=== PATIENT | female | born 1955 | race Caucasian/White ===

== ENCOUNTER 2024-06-22 15:30 | Emergency (ER) | payer OTHER, SELFPAY ==
[2024-06-22] VITALS (17 sets, daily range): BP systolic 158–188; BP diastolic 74–113; PULSE 91–111; TEMP 36.8; O2SAT 96–100; BMI 23.0
--- NOTE | 2024-06-22 15:33 | CT_ITS ---
The [address] [address] Patient Name: YADY PEDERSEN MRN: [id number] date: 1955 Sex: F Assigned Patient Location: ER Current Patient Location: .[facility] Accession/Order Number: [id number] Exam Date: 06/22/2024 15:35 Report Date: 06/22/2024 15:49 At the request of: KUN ARREGUIN Procedure: CT stroke head/brain wo con EXAM: CT stroke head/brain wo con HISTORY: ams slurred speech COMPARISON: None available at the time of dictation. TECHNIQUE: Axial unenhanced CT images were obtained through the brain. Individualized dose optimization technique was used for the performed procedure by employing the following: Automated exposure control, adjustment of the mA and/or kV according to patient's size, and/or the use of the iterative construction technique. Coronal and sagittal reformats were performed. FINDINGS: No acute intracranial abnormality. No acute infarct, hemorrhage or mass. No midline shift. Alexandra-white matter differentiation is preserved. Ventricles and sulci are normal in size. Periventricular white matter hypodensity, likely chronic white matter ischemic disease. No acute osseous abnormality. Paranasal sinuses are clear. Mastoid air cells are open. Orbits are normal. CT/CT stroke head/brain wo con IMPRESSION: 1. No acute intracranial abnormality. No acute intracranial infarct visualized by this modality. (MRI is more sensitive). No acute intracranial hemorrhage Electronically authenticated by: KAMLESH MCCLOUD Date: 06/22/2024 15:49
--- NOTE | 2024-06-22 15:33 | ECG_ITS ---
The [facility] Test Date: 2024-06-22 Pat Name: YADY PEDERSEN Department: Room: - Gender: Female [employer]: : 1955 Requested By: PHI ROWELL Order Number: [id number] Reading MD: SHELLIE ALBRIGHT Measurements Intervals [place] Rate: 96 P: 86 DE: 142 QRS: 75 QRSD: 82 T: 64 QT: 366 QTc: 419 Interpretive Statements 1100 Sinus rhythm 3613 Cannot rule out inferior myocardial infarction, probably old 9150 abnormal ECG No previous ECG available for comparison Electronically Signed On 06-22-2024 21:29:42 EST by SHELLIE ALBRIGHT
[2024-06-22 15:46] LABS: Glucometer 106 mg/dL (74-106)
[2024-06-22 15:49] LABS: Basophils Absolute Auto 0.1 10^3/uL (0.0-0.1); Basophils Percent Auto 0.3 % (0.2-2.0); Eosinophils Percent Auto 0.1 % (0.9-7.0); Hematocrit 45.8 % (36.0-48.0); Immature Granulocytes Abs Auto 0.06 10^3/uL (0.00-0.03); Immature Granulocytes Pct Auto 0.3 % (0.0-0.5); Lymphocytes Absolute Auto 1.1 10^3/uL (1.2-3.8); Lymphocytes Percent Auto 6.2 % (20.5-60.0); Mean Corpuscular HGB Conc 34.9 g/dL (29.9-35.2); Mean Corpuscular Volume 88.8 fL (81.0-99.0); Mean Platelet Volume 9.6 fL (9.5-13.5); Monocytes Absolute Auto 0.9 10^3/uL (0.3-0.8); Monocytes Percent Auto 4.7 % (1.7-12.0); Neutrophils Absolute Auto 16.3 10^3/uL (1.4-6.5); Neutrophils Percent Auto 88.4 % (43.0-75.0); Platelet Count 366 10^3/uL (150-450); Red Blood Count 5.16 10^6/uL (4.20-5.40); Red Cell Distribution Width 11.9 % (11.0-15.0); White Blood Count 18.4 10^3/uL (4.0-11.0)
[2024-06-22 16:03] LABS: INR 1.03; Prothrombin Time 10.9 sec (9.0-11.6)
[2024-06-22 16:07] LABS: Alanine Aminotransferase 19 U/L (14-59); Albumin Globulin Ratio 1.2; Albumin Level 4.2 g/dL (3.4-5.0); Alkaline Phosphatase 107 U/L (46-116); Anion Gap 18.4; Aspartate Amino Transferase 19 U/L (15-37); BUN Creatinine Ratio 11.6; Bilirubin Total 0.4 mg/dL (0.2-1.0); Calcium 9.6 mg/dL (8.5-10.1); Chloride 104 mmol/L (98-107); Estimated GFR (African America >60 (>=60 mL/min/1.73m^2); Estimated GFR (Non-African Ame >60 (>=60 mL/min/1.73m^2); Globulin 3.4 g/dL; Glucose 115 mg/dL (74-106); Potassium 4.4 mmol/L (3.5-5.1); Sodium 143 mmol/L (136-145); Total Protein 7.6 g/dL (6.4-8.2)
--- NOTE | 2024-06-22 16:08 | CT_ITS ---
The [address] [address] Patient Name: YADY PEDERSEN MRN: [id number] date: 1955 Sex: F Assigned Patient Location: ED.MAIN Current Patient Location: Accession/Order Number: [id number] Exam Date: 06/22/2024 16:35 Report Date: 06/22/2024 17:15 At the request of: KUN ARREGUIN Procedure: CT angio neck CT angio head, CT angio neck, 06/22/2024 4:35 PM EST INDICATION: stroke COMPARISON: Prior CT of the head of the same date TECHNIQUE: Pre and postcontrast enhanced CT angiography of the head and neck were acquired with contrast .3 D MIP images were reconstructed in sagittal and coronal format at the scanner and were evaluated at the time of dictation. Dose reduction techniques were achieved by using automated exposure control and/or adjustment of mA and/or kV according to patient size and/or use of iterative reconstruction technique. FINDINGS: The great vessels enhance normally. No filling defects are identified within the carotid arteries. There is mild stenosis at the origin of the internal carotid arteries. No abnormality of [place] is noted. The BAIRON MCA and R[employer]EWABLE EN[employer] CONSULTANT are unremarkable. The anterior and posterior communicating arteries are patent. There is no aneurysm or significant stenosis. No abnormality of the vertebral and basilar arteries is noted. No mass, mass effect or midline shift or hemorrhage in the brain parenchyma is noted. Multinodular thyroid with nodules measuring up to 1.8 cm. No other significant soft tissue abnormality within the neck is noted. The visualized portion of the lungs is unremarkable. No suspicious bone lesion is noted. Multilevel degenerative changes of cervical spine. CT/CT angio neck IMPRESSION: No CT evidence of embolus or severe stenosis or dissection in the major arteries in the current study. Large thyroid nodule. Nonemergent ultrasound is recommended for further evaluation. Degree of stenosis in the cervical segment of the internal carotid arteries by NASCET criteria : Mild = <50% stenosis. Moderate = 50-69% stenosis. Severe = >70% stenosis to 99%. Total occlusion= No detectable patent lumen. Electronically authenticated by: BRENDA MCKINNEY Date: 06/22/2024 17:15
--- NOTE | 2024-06-22 16:08 | CT_ITS ---
The [address] [address] Patient Name: YADY PEDERSEN MRN: [id number] date: 1955 Sex: F Assigned Patient Location: ED.MAIN Current Patient Location: Accession/Order Number: [id number] Exam Date: 06/22/2024 16:35 Report Date: 06/22/2024 17:15 At the request of: KUN ARREGUIN Procedure: CT angio head CT angio head, CT angio neck, 06/22/2024 4:35 PM EST INDICATION: stroke COMPARISON: Prior CT of the head of the same date TECHNIQUE: Pre and postcontrast enhanced CT angiography of the head and neck were acquired with contrast .3 D MIP images were reconstructed in sagittal and coronal format at the scanner and were evaluated at the time of dictation. Dose reduction techniques were achieved by using automated exposure control and/or adjustment of mA and/or kV according to patient size and/or use of iterative reconstruction technique. FINDINGS: The great vessels enhance normally. No filling defects are identified within the carotid arteries. There is mild stenosis at the origin of the internal carotid arteries. No abnormality of [place] is noted. The BAIRON MCA and ELECTROMECHANICAL ASSEMBLER are unremarkable. The anterior and posterior communicating arteries are patent. There is no aneurysm or significant stenosis. No abnormality of the vertebral and basilar arteries is noted. No mass, mass effect or midline shift or hemorrhage in the brain parenchyma is noted. Multinodular thyroid with nodules measuring up to 1.8 cm. No other significant soft tissue abnormality within the neck is noted. The visualized portion of the lungs is unremarkable. No suspicious bone lesion is noted. Multilevel degenerative changes of cervical spine. CT/CT angio head IMPRESSION: No CT evidence of embolus or severe stenosis or dissection in the major arteries in the current study. Large thyroid nodule. Nonemergent ultrasound is recommended for further evaluation. Degree of stenosis in the cervical segment of the internal carotid arteries by NASCET criteria : Mild = <50% stenosis. Moderate = 50-69% stenosis. Severe = >70% stenosis to 99%. Total occlusion= No detectable patent lumen. Electronically authenticated by: BRENDA MCKINNEY Date: 06/22/2024 17:15
[2024-06-22 16:20] LABS: Troponin I High Sensitivity 8.3 pg/mL (4.0-51.3)
[2024-06-22] MEDS: ASPIRIN 81 MG TAB.CHEW 324 MG PO (16:58)
[2024-06-22] MEDS: CLOPIDOGREL BISULFATE 75 MG TABLET 600 MG PO (17:44)
--- NOTE | 2024-06-22 17:50 | ED_ITS ---
HPI - Neuro Symptoms/Deficit General Chief Complaint: Neuro Symptoms/Deficit Stated Complaint: WEAKNESS Time Seen by Provider: 06/22/24 15:33 Source: family Mode of arrival: Wheelchair History of Present Illness HPI Narrative: The patient is coming to the ER after her grandkids noted today that she was having slurred speech and having right-sided weakness, last known well was yesterday at 8 PM and they presented to us at 3 PM The patient have slurred speech but you can understand her voice she denies any complaint and any symptoms before this happened She mentioned that she woke up this morning with the symptoms Patient does not take any medication at home Related Data Home Medications ?Medication ?Instructions ?Recorded ?Confirmed Unobtainable 06/22/24 06/22/24 Allergies Allergy/AdvReac Type Severity Reaction Status Date / Time No Known Drug Allergies Allergy Verified 06/22/24 15:38 Review of Systems ROS Status of ROS 10 or more systems reviewed and unremark able except as noted in history and below Exam Narrative Exam Narrative: Nurses notes and vital signs reviewed and patient is not hypoxic. General: Well-appearing and in no apparent distress. Skin: Warm, dry, no pallor noted. No rash. Head: Normocephalic, atraumatic. Neck: Supple, non-tender. Eye: Pupils are equal, round and EOMI. No scleral icterus. Ears, Nose, Mouth, and Throat: TM are clear, no nasal mucosal hypertrophy. Oral mucosa is moist, no posterior oropharynx erythema, uvula is mid-line Cardiovascular: Regular Rate and Rhythm without murmur, gallop or rub. Respiratory: No accessory muscle use or respiratory distress. Lungs are clear to auscultation, no wheezing, rales or rhonchi Chest Wall: no tenderness Back: No midline thoracic or lumbar vertebral tenderness. No CVA tenderness Musculoskeletal: normal ROM, no calf or popliteal tenderness, no lower extremity edema/swelling GI: Abdomen is soft, non-distended. Normal bowel sounds. No masses appreciated. No tenderness to palpation. No rebound, guarding, or rigidity noted. NIH stroke score is 6 at least upon arrival at 3 PM Constitutional Vital Signs, click to edit/add: Last Vital Signs Temp 98.2 F 06/22/24 15:38 Pulse 98 H 06/22/24 17:30 Resp 22 H 06/22/24 17:30 BP 178/104 H 06/22/24 17:30 Pulse Ox 99 06/22/24 17:30 O2 Del Method Nasal Cannula 06/22/24 15:38 Course Vital Signs Vital signs: Vital Signs Temperature 98.2 F 06/22/24 15:38 Pulse Rate 105 H 06/22/24 15:38 Respiratory Rate 18 06/22/24 15:38 Blood Pressure 158/96 H 06/22/24 15:38 Pulse Oximetry 98 06/22/24 15:38 Oxygen Delivery Method Nasal Cannula 06/22/24 15:38 Temperature 98.2 F 06/22/24 15:38 Pulse Rate 98 H 06/22/24 17:30 Respiratory Rate 22 H 06/22/24 17:30 Blood Pressure 178/104 H 06/22/24 17:30 Pulse Oximetry 99 06/22/24 17:30 Oxygen Delivery Method Nasal Cannula 06/22/24 15:38 MDM - Neuro Symptoms/Deficit MDM Narrative Medical decision making narrative: The patient upon arrival is having obvious neurological deficit that is significant but she is more than 15 hours after the last known well She does not take any medication at home and she does not think that she have previous medical history but the patient does not seem that she follow-up with her primary care as outpatient The patient blood workup did not show any acute pathology except for leukocytosis could be reactive but there is no known infection signs The patient had a CT head with a stroke protocol upon arrival that showed no acute pathology The case was discussed with teleneurology and they agreed it is an acute stroke the patient was started initially with aspirin 324 mg dose after getting the CT angio that showed significant vascular disease of the head and neck and the fact that the patient might need stent placement the patient will be transferred to [facility] intensive care unit Under Dr. De Luna Right now the patient also provided also with Plavix 600 mg 1 time Lab Data Labs: Lab Results 06/22/24 06/22/24 Range/Units 15:43 15:45 WBC 18.4 H (4.0-11.0) 10^3/uL RBC 5.16 (4.20-5.40) 10^6/uL Hgb 16.0 (12.0-16.0) g/dL Hct 45.8 (36.0-48.0) % MCV 88.8 (81.0-99.0) fL MCH 31.0 (26.7-34.0) pg MCHC 34.9 (29.9-35.2) g/dL RDW 11.9 (11.0-15.0) % Plt Count 366 (150-450) 10^3/uL MPV 9.6 (9.5-13.5) fL Neut % (Auto) 88.4 H (43.0-75.0) % Lymph % (Auto) 6.2 L (20.5-60.0) % [place] % (Auto) 4.7 (1.7-12.0) % Eos % (Auto) 0.1 L (0.9-7.0) % Baso % (Auto) 0.3 (0.2-2.0) % Neut # (Auto) 16.3 H (1.4-6.5) 10^3/uL Lymph # (Auto) 1.1 L (1.2-3.8) 10^3/uL [place] # (Auto) 0.9 H (0.3-0.8) 10^3/uL Eos # (Auto) 0.0 (0.0-0.7) 10^3/uL Baso # (Auto) 0.1 (0.0-0.1) 10^3/uL Abs Immat Gran (auto) 0.06 H (0.00-0.03) 10^3/uL Imm/Tot Granulo (auto) 0.3 (0.0-0.5) % PT 10.9 (9.0-11.6) sec INR 1.03 Sodium 143 (136-145) mmol/L Potassium 4.4 (3.5-5.1) mmol/L Chloride 104 (98-107) mmol/L Carbon Dioxide 25.0 (21.0-32.0) mmol/L Anion Gap 18.4 BUN 10.0 (7.0-18.0) mg/dL Creatinine 0.86 (0.55-1.02) mg/dL Est GFR ( Amer) >60 (>=60 mL/min/1.73m^2) Est GFR (Non-Af Amer) >60 (>=60 mL/min/1.73m^2) BUN/Creatinine Ratio 11.6 Glucose 115 H (74-106) mg/dL Calcium 9.6 (8.5-10.1) mg/dL Total Bilirubin 0.4 (0.2-1.0) mg/dL AST 19 (15-37) U/L ALT 19 (14-59) U/L Alkaline Phosphatase 107 (46-116) U/L Troponin I High Sens 8.3 (4.0-51.3) pg/mL Total Protein 7.6 (6.4-8.2) g/dL Albumin 4.2 (3.4-5.0) g/dL Globulin 3.4 g/dL Albumin/Globulin Ratio 1.2 POC Glucose 106 (74-106) mg/dL Discharge Plan Discharge Chief Complaint: Neuro Symptoms/Deficit Clinical Impression: Acute stroke due to ischemia Patient Disposition: [facility] Time of Disposition Decision: 17:50 Discharge location: [facility] ICU
--- NOTE | 2024-06-22 18:21 | PC.NURSE ---
Report called to [facility] ICU
--- NOTE | 2024-06-22 18:22 | PC.NURSE ---
pt failed swallow study, coughing and pocketing in right cheek
== END 2024-06-22 23:11 | disposition short-term general hospital (02) ==
PROVIDERS: Emergency Provider Emergency Medicine; PCP Family Medicine
DX: I63.9 Cerebral infarction, unspecified (principal); E04.2 Nontoxic multinodular goiter; F17.210 Nicotine dependence, cigarettes, uncomplicated; R29.707 NIHSS score 7
CPT/HCPCS: 36415; 51702; 70450; 70496; 70498; 80053; 84484; 85025; 85610; 93005; 99285; Q9967